=== PATIENT | female | born 1940 | race Caucasian/White ===

== ENCOUNTER 2016-12-28 09:37 | Day surgery (SDC) | payer MEDICARE, BC ==
--- NOTE | ~2016-12-28 | EGD ---
EGD REPORT [facility] [address] [id number] NAME: BRIA DENT : 44 STATUS : REG [facility]#: [id number] AGE: 76 ADM/REG DATE : 12/28/16 MR#: [id number] REPORT SERV DATE: 12/28/16 DICTATED BY: SURENDRA DIALLO DATE: 12/28/16 REPORT STATUS : Draft TRANSCRIBED BY: [facility] DATE: 12/28/16 [facility] Patient Name: Bria Dent Date of : 1940 Attending MD: SURENDRA DIALLO MD Procedure Date No Time: 12/28/2016 Procedure: Colonoscopy Indications: High risk colon cancer surveillance: Personal history of colon cancer, Last colon 2014 Referring MD: ALVIN BUNN MD Medicines: See the Anesthesia note for documentation of the administered medications Complications: No immediate complications. Procedure: Pre-Anesthesia Assessment: - ASA Grade Assessment: III - A patient with severe systemic disease. After I obtained informed consent, the scope was passed under direct vision. Throughout the procedure, the patient's blood pressure, pulse, and oxygen saturations were monitored continuously. The PCF [id number] was introduced through the anus and advanced to the terminal ileum, with identification of the appendiceal orifice and IC valve. The colonoscopy was performed without difficulty. The patient tolerated the procedure well. The quality of the bowel preparation was adequate. Findings: The perianal and digital rectal examinations were normal. A single angioectasia was found in the cecum. Internal hemorrhoids were found during retroflexion and were small. Five sessile polyps were found in the ascending colon. The polyps were 10 mm in size. These polyps were removed with a hot snare. Resection and retrieval were complete. A sessile polyp was found in the ascending colon. The polyp was small in size. The polyp was removed with a cold biopsy forceps. Resection and retrieval were complete. A sessile polyp was found in the cecum. The polyp was 15 mm in size. The polyp was removed with a piecemeal technique using a hot snare. Resection and retrieval were complete. A sessile polyp was found in the cecum. The polyp was 10 mm in size. The polyp was removed with a hot snare. Resection and retrieval were complete. Three sessile polyps were found at the hepatic flexure. The polyps were 10 mm in size. These polyps were removed with a hot snare. Resection and retrieval were complete. EGD REPORT [address] [address] NAME: BRIA DENT : 44 STATUS : [place] [facility] [place] [id number] AGE: 76 ADM/REG DATE : 12/28/16 MR#: [id number] REPORT SERV DATE: 12/28/16 DICTATED BY: SURENDRA DIALLO DATE: 12/28/16 REPORT STATUS : Draft TRANSCRIBED BY: [employer] DATE: 12/28/16 A sessile polyp was found in the transverse colon. The polyp was 10 mm in size. The polyp was removed with a hot snare. Resection and retrieval were complete. Impression: - A single colonic angioectasia. - Internal hemorrhoids. - Five 10 mm polyps in the ascending colon. Resected and retrieved. - One small polyp in the ascending colon. Resected and retrieved. - One 15 mm polyp in the cecum. Resected and retrieved. - One 10 mm polyp in the cecum. Resected and retrieved. - Three 10 mm polyps at the hepatic flexure. Resected and retrieved. - One 10 mm polyp in the transverse colon. Resected and retrieved. Recommendation: - Patient has a contact number available for emergencies. The signs and symptoms of potential delayed complications were discussed with the patient. Return to normal activities tomorrow. Written discharge instructions were provided to the patient. - Regular diet. - Continue present medications. - Repeat colonoscopy in 6 months for surveillance after piecemeal polypectomy. - FOR YOUR BIOPSY RESULTS: Please go to [email or web address] and register to receive your results via the portal. Your biopsy results will be posted there in about 7 to 10 days. IF you do not see result in 10 days, call office. - Restart your Eliquis. Please be aware that there is some risk of bleeding due to number and size of polyps removed. If you pass any maroon blood or black stools, call office or go to ER Procedure Code(s): --- Professional --- 12091, Colonoscopy, flexible, proximal to splenic flexure; with removal of tumor(s), polyp(s), or other lesion(s) by snare technique 52383, 59, Colonoscopy, flexible, proximal to splenic flexure; with biopsy, single or multiple Diagnosis Code(s): --- Professional --- K55.20, Angiodysplasia of colon without hemorrhage K64.8, Other hemorrhoids D12.3, Benign neoplasm of transverse colon EGD REPORT [address] [address] NAME: BRIA DENT : 44 STATUS : REG [facility]#: [id number] AGE: 76 ADM/REG DATE : 12/28/16 MR#: [id number] REPORT SERV DATE: 12/28/16 DICTATED BY: SURENDRA DIALLO DATE: 12/28/16 REPORT STATUS : Draft TRANSCRIBED BY: [employer] DATE: 12/28/16 D12.0, Benign neoplasm of cecum D12.2, Benign neoplasm of ascending colon Z85.038, Personal history of other malignant neoplasm of large intestine CPT copyright 2013 [employer]. All rights reserved. The codes documented in this report are preliminary and upon contact center consultant review may be revised to meet current compliance requirements. Surendra Diallo MD SURENDRA DIALLO MD 12/28/2016 11:02 AM This report has been signed electronically. Number of Addenda: 0 Note Initiated On: 12/28/2016 10:13 AM Scope Withdrawal Time 0 hours 24 minutes 33 seconds [address] [id number]
[~2016-12-28 09:37] MED LIST: ALLEGRA180 PO; BETAPACE80 PO; CYMBALTA30 PO; ELIQUIS 5 MG TAB5 MG PO; KLOR-CON M2020 MEQ PO; LEVOTHYROXIN25 MCG PO; MIRAPEX1 MG PO; MIRAPEX5 PO; P20 PO; PRILOSEC40 MG PO; RANITIDINE300 MG PO; SPIRO25 PO; VITAMIN B-121000 MC1 SL; VITAMIN D31000 UNIT PO; ZANAFLEX 4 MG TA4 MG PO; ZANAFLEX2 MG PO; ZANTAC150 MG PO
== END 2016-12-28 23:59 | disposition home health service (06) ==
LOC: DMU 09:37
PROVIDERS: Internal Medicine Gastroenterology
PROC: 0DBL8ZX Excision of Transverse Colon, Via Natural or Artificial Opening Endoscopic, Diagnostic (ICD-10-PCS; 2016-12-28)
PROC: 0DBK8ZX Excision of Ascending Colon, Via Natural or Artificial Opening Endoscopic, Diagnostic (ICD-10-PCS; principal; 2016-12-28 11:00)
PROC: 0DBH8ZX Excision of Cecum, Via Natural or Artificial Opening Endoscopic, Diagnostic (ICD-10-PCS; 2016-12-28 11:00)
DX: Z12.11 Encounter for screening for malignant neoplasm of colon (principal); D12.0 Benign neoplasm of cecum; D12.2 Benign neoplasm of ascending colon; D12.3 Benign neoplasm of transverse colon; K55.20 Angiodysplasia of colon without hemorrhage; K64.8 Other hemorrhoids; I48.91 Unspecified atrial fibrillation; J44.9 Chronic obstructive pulmonary disease, unspecified; J45.909 Unspecified asthma, uncomplicated; E03.9 Hypothyroidism, unspecified; F43.10 Post-traumatic stress disorder, unspecified; C85.90 Non-Hodgkin lymphoma, unspecified, unspecified site; Z88.1 Allergy status to other antibiotic agents; Z85.038 Personal history of other malignant neoplasm of large intestine; Z88.2 Allergy status to sulfonamides; Z79.899 Other long term (current) drug therapy; Z98.890 Other specified postprocedural states; Z90.710 Acquired absence of both cervix and uterus; Z90.49 Acquired absence of other specified parts of digestive tract
CPT/HCPCS: 88305